=== PATIENT | male | born 1945 | race Caucasian/White ===

== ENCOUNTER 2021-10-26 20:45 | Inpatient (IN) | payer OTHER ==
[2021-10-26 21:28] VITALS: BMI 14.8
[2021-10-26 23:07] LABS: BASO % 0.4 % (0-2.0); HEMATOCRIT 48.5 % (35.4-49); HEMOGLOBIN 16.1 GM/dL (11.7-16.9); LYMPH % 12.8 % (8-40); MCH 28.7 pg (25.7-33.7); MCHC 33.2 g/dl (32.0-35.9); MEAN CELL VOLUME 86.6 fl (80-96); MEAN PLT VOLUME 7.7 fl (7.5-11.1); MONO % 10.6 % (3.8-10.2); NEUT % 76.2 % (42.8-82.8); PLATELET COUNT 338 10^3/uL (134-434); RDW 15.6 % (11.9-15.9); WHITE BLOOD COUNT 6.9 K/mm3 (4.0-10.0)
[2021-10-26 23:15] LABS: INR 1.11 (0.83-1.09); PROTHROMBIN TIME (PATIENT) 12.5 SEC (9.7-13.0)
[2021-10-26 23:17] LABS: ACTIVATED PTT 32.4 SECONDS (25.2-36.5)
[2021-10-26 23:26] LABS: BLOOD UREA NITROGEN 49.4 mg/dL (7-18); CALCIUM 8.4 mg/dL (8.5-10.1)
[2021-10-26 23:27] LABS: MAGNESIUM 2.3 mg/dL (1.8-2.4)
[2021-10-26 23:30] LABS: CREATININE 1.9 mg/dL (0.55-1.3); PHOSPHOROUS 4.6 mg/dL (2.5-4.9)
[2021-10-26 23:31] LABS: BILIRUBIN,TOTAL 0.3 mg/dL (0.2-1); TOT PROT 6.9 g/dl (6.4-8.2)
[2021-10-26] MEDS ORDERED: THIAMINE HCL 200 MG/2 ML VIAL IVPB ONE (23:44)
[2021-10-26] MEDS ORDERED: DEXTROSE 50%-WATER - 25 GM/50 ML VIAL IVPUSH ONE (23:44)
[2021-10-26] MEDS ORDERED: LACTATED RINGERS SOLUTION 1000 ML INFUS.BAG IV ONE (23:48)
[2021-10-27] MEDS ORDERED: THIAMINE HCL 200 MG/2 ML VIAL ONE (00:27)
[2021-10-27] MEDS ORDERED: DEXTROSE 50%-WATER 25 GM/50 ML DISP.SYRIN ONE (00:27)
[2021-10-27] MEDS: DEXTROSE 5%-NORMAL SALINE 1,000 ML IV SCH (04:28)
[2021-10-27 04:46] LABS: URINE APPEARANCE CLEAR; URINE BILIRUBIN NEGATIVE (NEGATIVE); URINE COLOR YELLOW; URINE GLUCOSE (UA) TRACE (NEGATIVE); URINE KETONE NEGATIVE (NEGATIVE); URINE LEUK ESTERASE NEGATIVE (NEGATIVE); URINE NITRITE NEGATIVE (NEGATIVE); URINE PROTEIN TRACE (NEGATIVE); URINE UROBILINOGEN 0.2 mg/dL (0.2-1.0)
[2021-10-27 05:13] LABS: OPIATES, URI NEGATIVE (NEGATIVE); URINE BARBITURATES NEGATIVE (NEGATIVE)
[2021-10-27 05:14] LABS: COCAINE, UR NEGATIVE (NEGATIVE); PHENCYCLIDINE,URINE NEGATIVE (NEGATIVE)
[2021-10-27 05:17] LABS: METHADONE, UR POSITIVE (NEGATIVE); URINE AMPHETAMINES NEGATIVE (NEGATIVE); URINE BENZODIAZEPINES NEGATIVE (NEGATIVE)
[2021-10-27] MEDS ORDERED: PERMETHRIN (NIX CREAM SCALP RINSE) 59 ML 1% BOTTLE TP ONE ×2 (06:45→10:00)
[2021-10-27] MEDS ORDERED: HEPARIN NA (PORCINE) 5,000 UNITS/ML 1ML VIAL ONE ×2 (06:58→15:20)
[2021-10-27] MEDS: HEPARIN NA (PORCINE) 5,000 UNITS/ML 1ML VIAL SQ SCH ×3 (07:03→21:58)
[2021-10-27 07:07] LABS: BASO % 0.3 % (0-2.0); EOS % 0.1 % (0-4.5); HEMATOCRIT 40.8 % (35.4-49); HEMOGLOBIN 13.6 GM/dL (11.7-16.9); LYMPH % 21.6 % (8-40); MCH 28.9 pg (25.7-33.7); MCHC 33.4 g/dl (32.0-35.9); MEAN CELL VOLUME 86.5 fl (80-96); MEAN PLT VOLUME 7.6 fl (7.5-11.1); MONO % 11.8 % (3.8-10.2); NEUT % 66.2 % (42.8-82.8); PLATELET COUNT 274 10^3/uL (134-434); RBC 4.72 M/mm3 (4.00-5.60); RDW 15.3 % (11.9-15.9); WHITE BLOOD COUNT 4.4 K/mm3 (4.0-10.0)
[2021-10-27 07:26] LABS: CALCIUM 7.7 mg/dL (8.5-10.1)
[2021-10-27 07:27] LABS: BLOOD UREA NITROGEN 41.8 mg/dL (7-18); MAGNESIUM 2.1 mg/dL (1.8-2.4)
[2021-10-27 07:30] LABS: CREATININE 1.3 mg/dL (0.55-1.3); PHOSPHOROUS 3.2 mg/dL (2.5-4.9)
[2021-10-27 07:31] LABS: BILIRUBIN,TOTAL 0.3 mg/dL (0.2-1); TOT PROT 5.5 g/dl (6.4-8.2)
[2021-10-27 07:39] LABS: ALBUMIN 2.4 g/dl (3.4-5.0)
[2021-10-27] MEDS ORDERED: DEXAMETHASONE SOD PHOSPHATE 4 MG/1 ML VIAL ONE (09:43)
[2021-10-27] MEDS ORDERED: DEXAMETHASONE SOD PHOSPHATE 10 MG/1 ML VIAL IVPUSH SCH (10:00)
[2021-10-27] MEDS ORDERED: PERMETHRIN 5% TOPICAL CREAM 60 GM TUBE TP ONE (15:30)
[2021-10-27] MEDS ORDERED: methaDONE 40 MG, methaDONE 20 MG PO ONE (18:15)
[2021-10-27] MEDS ORDERED: methaDONE HCL 40 MG DISPERSABLE TABLET ONE (18:48)
[2021-10-27] MEDS ORDERED: methaDONE HCL 10 MG TABLET ONE (18:48)
[2021-10-28] MEDS: DEXTROSE 5%-NORMAL SALINE 1,000 ML IV SCH (03:17)
[2021-10-28] MEDS: HEPARIN NA (PORCINE) 5,000 UNITS/ML 1ML VIAL SQ SCH ×3 (06:02→21:53)
[2021-10-28 08:55] LABS: HEMATOCRIT 37.2 % (35.4-49); HEMOGLOBIN 12.1 GM/dL (11.7-16.9); MCH 28.2 pg (25.7-33.7); MCHC 32.4 g/dl (32.0-35.9); MEAN CELL VOLUME 87.1 fl (80-96); PLATELET COUNT 250 10^3/uL (134-434); RBC 4.28 M/mm3 (4.00-5.60); RDW 15.4 % (11.9-15.9)
[2021-10-28 08:56] LABS: WHITE BLOOD COUNT 5.1 K/mm3 (4.0-10.0)
[2021-10-28 09:10] LABS: CALCIUM 7.8 mg/dL (8.5-10.1)
[2021-10-28 09:11] LABS: ALBUMIN 2.2 g/dl (3.4-5.0); BLOOD UREA NITROGEN 23.1 mg/dL (7-18); MAGNESIUM 2.1 mg/dL (1.8-2.4)
[2021-10-28 09:14] LABS: CREATININE 0.8 mg/dL (0.55-1.3); PHOSPHOROUS 1.8 mg/dL (2.5-4.9)
[2021-10-28 09:15] LABS: BILIRUBIN,TOTAL 0.2 mg/dL (0.2-1); TOT PROT 4.8 g/dl (6.4-8.2)
[2021-10-28] MEDS ORDERED: PT OWN MED DRAWER 7, Y5N ONE (10:47)
[2021-10-28] MEDS: MULTIVITAMINS (DAILY MVI) TABLET (FP) PO SCH (11:17)
[2021-10-28] MEDS: DEXAMETHASONE SOD PHOSPHATE 10 MG/1 ML VIAL IVPUSH SCH (11:17)
[2021-10-28] MEDS: THIAMINE HCL 100 MG TABLET (FP) PO SCH (11:17)
[2021-10-28] MEDS: FOLIC ACID 1 MG TABLET (FP) PO SCH (11:18)
[2021-10-28] MEDS: BUDESONIDE/FORMETEROL FUMARATE 160/4.5 mcg INHALER IH SCH ×2 (11:19→21:53)
[2021-10-28] MEDS ORDERED: NAPH,MB-DB/K PH,MBDB POWDER PACKET PO ONE (11:45)
[2021-10-28] MEDS ORDERED: SODIUM CHLORIDE 100 ML IVPB ONE ×2 (13:29→21:34)
[2021-10-28] MEDS ORDERED: AMPICILLIN NA/SULBACTAM NA 3 GM VIAL ONE ×2 (13:29→21:34)
[2021-10-28] MEDS: AMPICILLIN NA/SULBACTAM NA 3 GM in SODIUM CHLORIDE 100 ML IVPB SCH ×2 (14:13→21:53)
[2021-10-28] MEDS ORDERED: REMDESIVIR 200 MG in SODIUM CHLORIDE 250 ML IVPB ONE (16:00)
[2021-10-29] MEDS ORDERED: AMPICILLIN NA/SULBACTAM NA 3 GM VIAL ONE ×3 (03:08→21:47)
[2021-10-29] MEDS ORDERED: SODIUM CHLORIDE 100 ML IVPB ONE ×3 (03:09→21:47)
[2021-10-29] MEDS: AMPICILLIN NA/SULBACTAM NA 3 GM in SODIUM CHLORIDE 100 ML IVPB SCH ×4 (03:14→21:55)
[2021-10-29] MEDS: HEPARIN NA (PORCINE) 5,000 UNITS/ML 1ML VIAL SQ SCH ×3 (06:02→21:55)
[2021-10-29 08:15] LABS: HEMATOCRIT 40.1 % (35.4-49); MCH 28.2 pg (25.7-33.7); MCHC 32.3 g/dl (32.0-35.9); MEAN CELL VOLUME 87.2 fl (80-96); MEAN PLT VOLUME 8.1 fl (7.5-11.1); PLATELET COUNT 282 10^3/uL (134-434); RDW 14.8 % (11.9-15.9)
[2021-10-29 08:53] LABS: ALBUMIN 2.4 g/dl (3.4-5.0); BLOOD UREA NITROGEN 18.2 mg/dL (7-18); CALCIUM 7.9 mg/dL (8.5-10.1); MAGNESIUM 1.8 mg/dL (1.8-2.4)
[2021-10-29] MEDS ORDERED: methaDONE HCL 10 MG TABLET PO SCH (08:55)
[2021-10-29 08:56] LABS: CREATININE 0.7 mg/dL (0.55-1.3); PHOSPHOROUS 1.7 mg/dL (2.5-4.9)
[2021-10-29 08:57] LABS: BILIRUBIN,TOTAL 0.4 mg/dL (0.2-1); TOT PROT 5.1 g/dl (6.4-8.2)
[2021-10-29] MEDS ORDERED: methaDONE HCL 40 MG DISPERSABLE TABLET ONE (10:11)
[2021-10-29] MEDS ORDERED: methaDONE HCL 10 MG TABLET ONE (10:11)
[2021-10-29] MEDS: DEXAMETHASONE SOD PHOSPHATE 10 MG/1 ML VIAL IVPUSH SCH (10:28)
[2021-10-29] MEDS: THIAMINE HCL 100 MG TABLET (FP) PO SCH (10:29)
[2021-10-29] MEDS: BUDESONIDE/FORMETEROL FUMARATE 160/4.5 mcg INHALER IH SCH ×2 (10:29→21:55)
[2021-10-29] MEDS: MULTIVITAMINS (DAILY MVI) TABLET (FP) PO SCH (10:29)
[2021-10-29] MEDS: FOLIC ACID 1 MG TABLET (FP) PO SCH (10:29)
[2021-10-29] MEDS: methaDONE 40 MG, methaDONE 30 MG PO SCH (10:29)
[2021-10-29] MEDS ORDERED: POTASSIUM PHOSPHATE 30 MM in DEXTROSE 5%-WATER - 500 ML IVPB ONE (11:00)
[2021-10-29] MEDS: REMDESIVIR 100 MG in SODIUM CHLORIDE 250 ML IVPB SCH (17:28)
[2021-10-29] MEDS: methaDONE HCL 10 MG TABLET PO SCH ×2 (22:21→22:22)
[2021-10-30] MEDS ORDERED: AMPICILLIN NA/SULBACTAM NA 3 GM VIAL ONE ×3 (02:02→20:27)
[2021-10-30] MEDS ORDERED: SODIUM CHLORIDE 100 ML IVPB ONE ×3 (02:03→20:28)
[2021-10-30] MEDS: AMPICILLIN NA/SULBACTAM NA 3 GM in SODIUM CHLORIDE 100 ML IVPB SCH ×4 (02:41→20:41)
[2021-10-30] MEDS ORDERED: methaDONE HCL 40 MG DISPERSABLE TABLET ONE (05:27)
[2021-10-30] MEDS ORDERED: methaDONE HCL 10 MG TABLET ONE (05:28)
[2021-10-30] MEDS: HEPARIN NA (PORCINE) 5,000 UNITS/ML 1ML VIAL SQ SCH ×3 (05:55→21:01)
[2021-10-30] MEDS: methaDONE 40 MG, methaDONE 30 MG PO SCH (05:55)
[2021-10-30 07:53] LABS: ALBUMIN 2.2 g/dl (3.4-5.0); BLOOD UREA NITROGEN 21.1 mg/dL (7-18); CALCIUM 8.1 mg/dL (8.5-10.1)
[2021-10-30 07:55] LABS: HEMOGLOBIN 12.6 GM/dL (11.7-16.9); MCH 28.1 pg (25.7-33.7); MCHC 32.3 g/dl (32.0-35.9); MEAN CELL VOLUME 86.9 fl (80-96); MEAN PLT VOLUME 7.6 fl (7.5-11.1); PLATELET COUNT 260 10^3/uL (134-434); RBC 4.49 M/mm3 (4.00-5.60); RDW 14.9 % (11.9-15.9); WHITE BLOOD COUNT 4.4 K/mm3 (4.0-10.0)
[2021-10-30 07:56] LABS: CREATININE 0.7 mg/dL (0.55-1.3)
[2021-10-30 07:58] LABS: BILIRUBIN,TOTAL 0.5 mg/dL (0.2-1); TOT PROT 4.9 g/dl (6.4-8.2)
[2021-10-30] MEDS: DEXAMETHASONE SOD PHOSPHATE 10 MG/1 ML VIAL IVPUSH SCH (09:55)
[2021-10-30] MEDS: THIAMINE HCL 100 MG TABLET (FP) PO SCH (09:55)
[2021-10-30] MEDS: MULTIVITAMINS (DAILY MVI) TABLET (FP) PO SCH (09:56)
[2021-10-30] MEDS: FOLIC ACID 1 MG TABLET (FP) PO SCH (09:56)
[2021-10-30] MEDS: BUDESONIDE/FORMETEROL FUMARATE 160/4.5 mcg INHALER IH SCH ×2 (09:56→21:01)
[2021-10-30 10:21] LABS: ERYTHROCYTE SEDIMENTATION RATE 6 mm/hr (0-20)
[2021-10-30] MEDS: REMDESIVIR 100 MG in SODIUM CHLORIDE 250 ML IVPB SCH (16:03)
[2021-10-31] MEDS ORDERED: SODIUM CHLORIDE 100 ML IVPB ONE ×4 (02:36→20:17)
[2021-10-31] MEDS ORDERED: AMPICILLIN NA/SULBACTAM NA 3 GM VIAL ONE ×4 (02:36→20:17)
[2021-10-31] MEDS: AMPICILLIN NA/SULBACTAM NA 3 GM in SODIUM CHLORIDE 100 ML IVPB SCH ×4 (02:38→20:25)
[2021-10-31] MEDS ORDERED: methaDONE HCL 40 MG DISPERSABLE TABLET ONE (05:39)
[2021-10-31] MEDS ORDERED: methaDONE HCL 10 MG TABLET ONE (05:39)
[2021-10-31] MEDS: methaDONE 40 MG, methaDONE 30 MG PO SCH (05:55)
[2021-10-31] MEDS: HEPARIN NA (PORCINE) 5,000 UNITS/ML 1ML VIAL SQ SCH ×3 (05:55→21:01)
[2021-10-31 09:09] LABS: CALCIUM 8.3 mg/dL (8.5-10.1)
[2021-10-31 09:10] LABS: ALBUMIN 2.3 g/dl (3.4-5.0); BLOOD UREA NITROGEN 19.7 mg/dL (7-18)
[2021-10-31 09:13] LABS: CREATININE 0.8 mg/dL (0.55-1.3)
[2021-10-31 09:15] LABS: BILIRUBIN,TOTAL 0.2 mg/dL (0.2-1)
[2021-10-31 09:22] LABS: HEMATOCRIT 41.1 % (35.4-49); HEMOGLOBIN 13.1 GM/dL (11.7-16.9); MCHC 31.8 g/dl (32.0-35.9); MEAN CELL VOLUME 88.2 fl (80-96); MEAN PLT VOLUME 7.9 fl (7.5-11.1); PLATELET COUNT 285 10^3/uL (134-434); RBC 4.66 M/mm3 (4.00-5.60); RDW 15.1 % (11.9-15.9); WHITE BLOOD COUNT 5.4 K/mm3 (4.0-10.0)
[2021-10-31] MEDS ORDERED: PT OWN MED DRAWER 7, Y5N ONE (09:35)
[2021-10-31] MEDS: THIAMINE HCL 100 MG TABLET (FP) PO SCH (09:37)
[2021-10-31] MEDS: FOLIC ACID 1 MG TABLET (FP) PO SCH (09:37)
[2021-10-31] MEDS: BUDESONIDE/FORMETEROL FUMARATE 160/4.5 mcg INHALER IH SCH ×2 (09:37→21:01)
[2021-10-31] MEDS: DEXAMETHASONE SOD PHOSPHATE 10 MG/1 ML VIAL IVPUSH SCH (09:38)
[2021-10-31 10:54] LABS: ERYTHROCYTE SEDIMENTATION RATE 8 mm/hr (0-20)
[2021-10-31] MEDS: MULTIVITAMINS (DAILY MVI) TABLET (FP) PO SCH (10:58)
[2021-10-31 11:54] LABS: BASO % 0.1 % (0-2.0); EOS % 0.5 % (0-4.5); MONO % 10.7 % (3.8-10.2); NEUT % 67.7 % (42.8-82.8)
[2021-10-31] MEDS: REMDESIVIR 100 MG in SODIUM CHLORIDE 250 ML IVPB SCH (15:59)
[2021-11-01] MEDS ORDERED: AMPICILLIN NA/SULBACTAM NA 3 GM VIAL ONE ×4 (02:52→21:22)
[2021-11-01] MEDS: AMPICILLIN NA/SULBACTAM NA 3 GM in SODIUM CHLORIDE 100 ML IVPB SCH ×4 (02:54→21:31)
[2021-11-01] MEDS: methaDONE 40 MG, methaDONE 30 MG PO SCH (05:04)
[2021-11-01] MEDS ORDERED: methaDONE HCL 10 MG TABLET ONE (05:04)
[2021-11-01] MEDS ORDERED: methaDONE HCL 40 MG DISPERSABLE TABLET ONE (05:04)
[2021-11-01] MEDS: HEPARIN NA (PORCINE) 5,000 UNITS/ML 1ML VIAL SQ SCH ×3 (05:07→21:31)
[2021-11-01 07:58] LABS: HEMATOCRIT 40.2 % (35.4-49); HEMOGLOBIN 12.7 GM/dL (11.7-16.9); MCHC 31.7 g/dl (32.0-35.9); MEAN CELL VOLUME 88.3 fl (80-96); MEAN PLT VOLUME 7.8 fl (7.5-11.1); PLATELET COUNT 299 10^3/uL (134-434); RBC 4.55 M/mm3 (4.00-5.60); RDW 14.7 % (11.9-15.9); WHITE BLOOD COUNT 5.7 K/mm3 (4.0-10.0)
[2021-11-01 08:36] LABS: ALBUMIN 2.3 g/dl (3.4-5.0); BILIRUBIN,TOTAL 0.3 mg/dL (0.2-1); BLOOD UREA NITROGEN 22.4 mg/dL (7-18); CALCIUM 7.9 mg/dL (8.5-10.1); CREATININE 0.7 mg/dL (0.55-1.3)
[2021-11-01] MEDS ORDERED: SODIUM CHLORIDE 100 ML IVPB ONE ×3 (09:36→21:22)
[2021-11-01] MEDS: MULTIVITAMINS (DAILY MVI) TABLET (FP) PO SCH (09:41)
[2021-11-01] MEDS: BUDESONIDE/FORMETEROL FUMARATE 160/4.5 mcg INHALER IH SCH ×2 (09:41→21:32)
[2021-11-01] MEDS: THIAMINE HCL 100 MG TABLET (FP) PO SCH (09:41)
[2021-11-01] MEDS: FOLIC ACID 1 MG TABLET (FP) PO SCH (09:41)
[2021-11-01] MEDS: DEXAMETHASONE SOD PHOSPHATE 10 MG/1 ML VIAL IVPUSH SCH (09:41)
[2021-11-01 10:18] LABS: ERYTHROCYTE SEDIMENTATION RATE 7 mm/hr (0-20)
[2021-11-01] MEDS: REMDESIVIR 100 MG in SODIUM CHLORIDE 250 ML IVPB SCH (16:00)
[2021-11-02] MEDS ORDERED: AMPICILLIN NA/SULBACTAM NA 3 GM VIAL ONE ×4 (02:02→20:51)
[2021-11-02] MEDS ORDERED: SODIUM CHLORIDE 100 ML IVPB ONE ×4 (02:02→20:51)
[2021-11-02] MEDS: AMPICILLIN NA/SULBACTAM NA 3 GM in SODIUM CHLORIDE 100 ML IVPB SCH ×4 (02:03→20:55)
[2021-11-02] MEDS ORDERED: methaDONE HCL 40 MG DISPERSABLE TABLET ONE (05:43)
[2021-11-02] MEDS ORDERED: methaDONE HCL 10 MG TABLET ONE (05:44)
[2021-11-02] MEDS: methaDONE 40 MG, methaDONE 30 MG PO SCH (06:07)
[2021-11-02] MEDS: HEPARIN NA (PORCINE) 5,000 UNITS/ML 1ML VIAL SQ SCH ×3 (06:07→21:50)
[2021-11-02 09:37] LABS: CALCIUM 8.4 mg/dL (8.5-10.1)
[2021-11-02 09:38] LABS: ALBUMIN 2.4 g/dl (3.4-5.0)
[2021-11-02 09:41] LABS: CREATININE 0.7 mg/dL (0.55-1.3)
[2021-11-02 09:42] LABS: BILIRUBIN,TOTAL 0.3 mg/dL (0.2-1); TOT PROT 4.9 g/dl (6.4-8.2)
[2021-11-02 10:23] LABS: HEMATOCRIT 38.3 % (35.4-49); HEMOGLOBIN 12.7 GM/dL (11.7-16.9); MCH 28.7 pg (25.7-33.7); MCHC 33.1 g/dl (32.0-35.9); MEAN CELL VOLUME 86.6 fl (80-96); MEAN PLT VOLUME 7.6 fl (7.5-11.1); PLATELET COUNT 292 10^3/uL (134-434); RBC 4.42 M/mm3 (4.00-5.60); RDW 15.1 % (11.9-15.9); WHITE BLOOD COUNT 5.9 K/mm3 (4.0-10.0)
[2021-11-02 10:54] LABS: ERYTHROCYTE SEDIMENTATION RATE 5 mm/hr (0-20)
[2021-11-02] MEDS: THIAMINE HCL 100 MG TABLET (FP) PO SCH (10:58)
[2021-11-02] MEDS: DEXAMETHASONE SOD PHOSPHATE 10 MG/1 ML VIAL IVPUSH SCH (10:58)
[2021-11-02] MEDS: MULTIVITAMINS (DAILY MVI) TABLET (FP) PO SCH (10:58)
[2021-11-02] MEDS: BUDESONIDE/FORMETEROL FUMARATE 160/4.5 mcg INHALER IH SCH ×2 (11:01→21:50)
[2021-11-02] MEDS: FOLIC ACID 1 MG TABLET (FP) PO SCH (11:01)
[2021-11-02 15:13] LABS: HIV INTERPRETATION NEGATIVE (NEGATIVE)
[2021-11-03] MEDS ORDERED: SODIUM CHLORIDE 100 ML IVPB ONE ×4 (02:28→21:11)
[2021-11-03] MEDS ORDERED: AMPICILLIN NA/SULBACTAM NA 3 GM VIAL ONE ×4 (02:28→21:10)
[2021-11-03] MEDS: AMPICILLIN NA/SULBACTAM NA 3 GM in SODIUM CHLORIDE 100 ML IVPB SCH ×4 (02:31→22:27)
[2021-11-03] MEDS ORDERED: methaDONE HCL 40 MG DISPERSABLE TABLET ONE (04:56)
[2021-11-03] MEDS ORDERED: methaDONE HCL 10 MG TABLET ONE (04:56)
[2021-11-03] MEDS: HEPARIN NA (PORCINE) 5,000 UNITS/ML 1ML VIAL SQ SCH ×3 (05:03→22:27)
[2021-11-03] MEDS: methaDONE 40 MG, methaDONE 30 MG PO SCH (05:03)
[2021-11-03 08:08] LABS: HEMATOCRIT 41.1 % (35.4-49); HEMOGLOBIN 13.3 GM/dL (11.7-16.9); MCH 28.3 pg (25.7-33.7); MCHC 32.3 g/dl (32.0-35.9); MEAN CELL VOLUME 87.6 fl (80-96); MEAN PLT VOLUME 8.6 fl (7.5-11.1); PLATELET COUNT 287 10^3/uL (134-434); RBC 4.69 M/mm3 (4.00-5.60); RDW 15.4 % (11.9-15.9); WHITE BLOOD COUNT 6.6 K/mm3 (4.0-10.0)
[2021-11-03 08:40] LABS: CALCIUM 8.4 mg/dL (8.5-10.1)
[2021-11-03 08:41] LABS: ALBUMIN 2.3 g/dl (3.4-5.0); BLOOD UREA NITROGEN 25.8 mg/dL (7-18)
[2021-11-03 08:42] LABS: CREATININE 0.6 mg/dL (0.55-1.3)
[2021-11-03 08:44] LABS: BILIRUBIN,TOTAL 0.2 mg/dL (0.2-1); TOT PROT 4.9 g/dl (6.4-8.2)
[2021-11-03 09:36] LABS: ERYTHROCYTE SEDIMENTATION RATE 8 mm/hr (0-20)
[2021-11-03] MEDS: DEXAMETHASONE SOD PHOSPHATE 10 MG/1 ML VIAL IVPUSH SCH (09:55)
[2021-11-03] MEDS: FOLIC ACID 1 MG TABLET (FP) PO SCH (09:56)
[2021-11-03] MEDS: THIAMINE HCL 100 MG TABLET (FP) PO SCH (09:56)
[2021-11-03] MEDS: MULTIVITAMINS (DAILY MVI) TABLET (FP) PO SCH (09:56)
[2021-11-03] MEDS: BUDESONIDE/FORMETEROL FUMARATE 160/4.5 mcg INHALER IH SCH ×2 (09:57→22:27)
[2021-11-04] MEDS ORDERED: AMPICILLIN NA/SULBACTAM NA 3 GM VIAL ONE ×2 (01:23→10:10)
[2021-11-04] MEDS ORDERED: SODIUM CHLORIDE 100 ML IVPB ONE ×2 (01:24→10:10)
[2021-11-04] MEDS: AMPICILLIN NA/SULBACTAM NA 3 GM in SODIUM CHLORIDE 100 ML IVPB SCH ×2 (03:13→10:15)
[2021-11-04] MEDS ORDERED: methaDONE HCL 40 MG DISPERSABLE TABLET ONE (06:07)
[2021-11-04] MEDS ORDERED: methaDONE HCL 10 MG TABLET ONE (06:07)
[2021-11-04] MEDS: methaDONE 40 MG, methaDONE 30 MG PO SCH (06:15)
[2021-11-04] MEDS: HEPARIN NA (PORCINE) 5,000 UNITS/ML 1ML VIAL SQ SCH ×2 (06:16→15:07)
[2021-11-04 09:29] LABS: CALCIUM 8.4 mg/dL (8.5-10.1)
[2021-11-04 09:30] LABS: ALBUMIN 2.4 g/dl (3.4-5.0); BLOOD UREA NITROGEN 32.1 mg/dL (7-18)
[2021-11-04 09:32] LABS: BILIRUBIN,TOTAL 0.2 mg/dL (0.2-1); TOT PROT 5.1 g/dl (6.4-8.2)
[2021-11-04 09:33] LABS: CREATININE 0.7 mg/dL (0.55-1.3)
[2021-11-04] MEDS: FOLIC ACID 1 MG TABLET (FP) PO SCH (10:15)
[2021-11-04] MEDS: BUDESONIDE/FORMETEROL FUMARATE 160/4.5 mcg INHALER IH SCH ×2 (10:15→21:15)
[2021-11-04] MEDS: THIAMINE HCL 100 MG TABLET (FP) PO SCH (10:15)
[2021-11-04] MEDS: MULTIVITAMINS (DAILY MVI) TABLET (FP) PO SCH (10:15)
[2021-11-04] MEDS: DEXAMETHASONE SOD PHOSPHATE 10 MG/1 ML VIAL IVPUSH SCH (11:57)
[2021-11-05] MEDS: methaDONE HCL 40 MG DISPERSABLE TABLET PO SCH (09:58)
[2021-11-05] MEDS: MULTIVITAMINS (DAILY MVI) TABLET (FP) PO SCH (10:04)
[2021-11-05] MEDS: THIAMINE HCL 100 MG TABLET (FP) PO SCH (10:04)
[2021-11-05] MEDS: FOLIC ACID 1 MG TABLET (FP) PO SCH (10:05)
[2021-11-05] MEDS: DEXAMETHASONE SOD PHOSPHATE 10 MG/1 ML VIAL IVPUSH SCH (10:05)
[2021-11-05] MEDS: ENOXAPARIN NA (PORCINE) 40 MG/0.4 ML DISP.SYRIN SQ SCH (10:06)
[2021-11-05] MEDS: BUDESONIDE/FORMETEROL FUMARATE 160/4.5 mcg INHALER IH SCH ×2 (10:06→21:12)
[2021-11-06] MEDS: methaDONE HCL 40 MG DISPERSABLE TABLET PO SCH (05:37)
[2021-11-06] MEDS: DEXAMETHASONE SOD PHOSPHATE 10 MG/1 ML VIAL IVPUSH SCH (10:45)
[2021-11-06] MEDS: FOLIC ACID 1 MG TABLET (FP) PO SCH (10:45)
[2021-11-06] MEDS: ENOXAPARIN NA (PORCINE) 40 MG/0.4 ML DISP.SYRIN SQ SCH (10:45)
[2021-11-06] MEDS: THIAMINE HCL 100 MG TABLET (FP) PO SCH (10:45)
[2021-11-06] MEDS: BUDESONIDE/FORMETEROL FUMARATE 160/4.5 mcg INHALER IH SCH ×2 (10:45→21:17)
[2021-11-06] MEDS: MULTIVITAMINS (DAILY MVI) TABLET (FP) PO SCH (10:45)
[2021-11-07] MEDS: methaDONE HCL 40 MG DISPERSABLE TABLET PO SCH (05:33)
[2021-11-07] MEDS: MULTIVITAMINS (DAILY MVI) TABLET (FP) PO SCH (10:04)
[2021-11-07] MEDS: DEXAMETHASONE SOD PHOSPHATE 10 MG/1 ML VIAL IVPUSH SCH (10:04)
[2021-11-07] MEDS: THIAMINE HCL 100 MG TABLET (FP) PO SCH (10:04)
[2021-11-07] MEDS: ENOXAPARIN NA (PORCINE) 40 MG/0.4 ML DISP.SYRIN SQ SCH (10:04)
[2021-11-07] MEDS: FOLIC ACID 1 MG TABLET (FP) PO SCH (10:05)
[2021-11-07] MEDS: BUDESONIDE/FORMETEROL FUMARATE 160/4.5 mcg INHALER IH SCH ×2 (10:06→21:25)
[2021-11-07 12:01] LABS: HEMATOCRIT 40.2 % (35.4-49); HEMOGLOBIN 12.7 GM/dL (11.7-16.9); MCH 27.9 pg (25.7-33.7); MCHC 31.6 g/dl (32.0-35.9); MEAN CELL VOLUME 88.4 fl (80-96); MEAN PLT VOLUME 8.5 fl (7.5-11.1); PLATELET COUNT 278 10^3/uL (134-434); RBC 4.55 M/mm3 (4.00-5.60); RDW 15.8 % (11.9-15.9); WHITE BLOOD COUNT 7.4 K/mm3 (4.0-10.0)
[2021-11-07 12:27] LABS: ALBUMIN 2.5 g/dl (3.4-5.0); BLOOD UREA NITROGEN 30.3 mg/dL (7-18); CALCIUM 8.5 mg/dL (8.5-10.1); MAGNESIUM 2.1 mg/dL (1.8-2.4)
[2021-11-07 12:30] LABS: CREATININE 0.8 mg/dL (0.55-1.3); PHOSPHOROUS 3.7 mg/dL (2.5-4.9)
[2021-11-07 12:32] LABS: BILIRUBIN,TOTAL 0.3 mg/dL (0.2-1); TOT PROT 5.2 g/dl (6.4-8.2)
[2021-11-08] MEDS: methaDONE HCL 40 MG DISPERSABLE TABLET PO SCH (06:22)
[2021-11-08] MEDS: THIAMINE HCL 100 MG TABLET (FP) PO SCH (09:13)
[2021-11-08] MEDS: ENOXAPARIN NA (PORCINE) 40 MG/0.4 ML DISP.SYRIN SQ SCH (09:14)
[2021-11-08] MEDS: FOLIC ACID 1 MG TABLET (FP) PO SCH (09:14)
[2021-11-08] MEDS: MULTIVITAMINS (DAILY MVI) TABLET (FP) PO SCH (09:14)
[2021-11-08] MEDS: BUDESONIDE/FORMETEROL FUMARATE 160/4.5 mcg INHALER IH SCH ×2 (09:14→21:18)
[2021-11-08 10:08] LABS: HEMOGLOBIN 12.2 GM/dL (11.7-16.9); MCH 28.1 pg (25.7-33.7); MCHC 31.4 g/dl (32.0-35.9); MEAN CELL VOLUME 89.5 fl (80-96); MEAN PLT VOLUME 8.8 fl (7.5-11.1); PLATELET COUNT 244 10^3/uL (134-434); RBC 4.35 M/mm3 (4.00-5.60); RDW 16.2 % (11.9-15.9); WHITE BLOOD COUNT 11.2 K/mm3 (4.0-10.0)
[2021-11-08 10:25] LABS: INR 0.95 (0.83-1.09); PROTHROMBIN TIME (PATIENT) 10.9 SEC (9.7-13.0)
[2021-11-08 10:27] LABS: ACTIVATED PTT 24.5 SECONDS (25.2-36.5)
[2021-11-08 10:55] LABS: ALBUMIN 2.4 g/dl (3.4-5.0); CALCIUM 8.6 mg/dL (8.5-10.1)
[2021-11-08 10:56] LABS: BLOOD UREA NITROGEN 29.2 mg/dL (7-18); MAGNESIUM 2.1 mg/dL (1.8-2.4)
[2021-11-08 10:58] LABS: PHOSPHOROUS 3.2 mg/dL (2.5-4.9)
[2021-11-08 10:59] LABS: CREATININE 0.9 mg/dL (0.55-1.3)
[2021-11-08 11:00] LABS: BILIRUBIN,TOTAL 0.3 mg/dL (0.2-1); TOT PROT 5.1 g/dl (6.4-8.2)
[2021-11-09] MEDS: methaDONE HCL 40 MG DISPERSABLE TABLET PO SCH (06:16)
[2021-11-09] MEDS: ENOXAPARIN NA (PORCINE) 40 MG/0.4 ML DISP.SYRIN SQ SCH (10:03)
[2021-11-09] MEDS: MULTIVITAMINS (DAILY MVI) TABLET (FP) PO SCH (10:03)
[2021-11-09] MEDS: THIAMINE HCL 100 MG TABLET (FP) PO SCH (10:03)
[2021-11-09] MEDS: BUDESONIDE/FORMETEROL FUMARATE 160/4.5 mcg INHALER IH SCH ×2 (10:04→22:03)
[2021-11-09] MEDS: FOLIC ACID 1 MG TABLET (FP) PO SCH (10:04)
[2021-11-10] MEDS: methaDONE HCL 40 MG DISPERSABLE TABLET PO SCH (05:55)
[2021-11-10] MEDS: MULTIVITAMINS (DAILY MVI) TABLET (FP) PO SCH (11:10)
[2021-11-10] MEDS: THIAMINE HCL 100 MG TABLET (FP) PO SCH (11:10)
[2021-11-10] MEDS: ENOXAPARIN NA (PORCINE) 40 MG/0.4 ML DISP.SYRIN SQ SCH (11:10)
[2021-11-10] MEDS: BUDESONIDE/FORMETEROL FUMARATE 160/4.5 mcg INHALER IH SCH ×2 (11:11→21:43)
[2021-11-10] MEDS: FOLIC ACID 1 MG TABLET (FP) PO SCH (11:11)
[2021-11-11] MEDS: methaDONE HCL 40 MG DISPERSABLE TABLET PO SCH (05:25)
[2021-11-11] MEDS: BUDESONIDE/FORMETEROL FUMARATE 160/4.5 mcg INHALER IH SCH ×2 (09:40→22:41)
[2021-11-11] MEDS: FOLIC ACID 1 MG TABLET (FP) PO SCH (09:40)
[2021-11-11] MEDS: ENOXAPARIN NA (PORCINE) 40 MG/0.4 ML DISP.SYRIN SQ SCH (09:40)
[2021-11-11] MEDS: MULTIVITAMINS (DAILY MVI) TABLET (FP) PO SCH (09:40)
[2021-11-11] MEDS: THIAMINE HCL 100 MG TABLET (FP) PO SCH (09:40)
[2021-11-12] MEDS: methaDONE HCL 40 MG DISPERSABLE TABLET PO SCH (05:40)
[2021-11-12] MEDS: MULTIVITAMINS (DAILY MVI) TABLET (FP) PO SCH (10:23)
[2021-11-12] MEDS: FOLIC ACID 1 MG TABLET (FP) PO SCH (10:24)
[2021-11-12] MEDS: THIAMINE HCL 100 MG TABLET (FP) PO SCH (10:24)
[2021-11-12] MEDS: BUDESONIDE/FORMETEROL FUMARATE 160/4.5 mcg INHALER IH SCH ×2 (10:30→22:49)
[2021-11-13] MEDS: methaDONE HCL 40 MG DISPERSABLE TABLET PO SCH (06:25)
[2021-11-13] MEDS: FOLIC ACID 1 MG TABLET (FP) PO SCH (09:34)
[2021-11-13] MEDS: THIAMINE HCL 100 MG TABLET (FP) PO SCH (09:34)
[2021-11-13] MEDS: MULTIVITAMINS (DAILY MVI) TABLET (FP) PO SCH (09:35)
[2021-11-13] MEDS: BUDESONIDE/FORMETEROL FUMARATE 160/4.5 mcg INHALER IH SCH ×3 (09:35→22:10)
[2021-11-14] MEDS: methaDONE HCL 40 MG DISPERSABLE TABLET PO SCH (05:55)
[2021-11-14] MEDS: MULTIVITAMINS (DAILY MVI) TABLET (FP) PO SCH (09:09)
[2021-11-14] MEDS: THIAMINE HCL 100 MG TABLET (FP) PO SCH (09:10)
[2021-11-14] MEDS: FOLIC ACID 1 MG TABLET (FP) PO SCH (09:10)
[2021-11-14] MEDS: BUDESONIDE/FORMETEROL FUMARATE 160/4.5 mcg INHALER IH SCH ×2 (09:15→21:53)
[2021-11-15] MEDS: methaDONE HCL 40 MG DISPERSABLE TABLET PO SCH (05:19)
[2021-11-15] MEDS: THIAMINE HCL 100 MG TABLET (FP) PO SCH (10:38)
[2021-11-15] MEDS: BUDESONIDE/FORMETEROL FUMARATE 160/4.5 mcg INHALER IH SCH ×2 (10:38→21:16)
[2021-11-15] MEDS: FOLIC ACID 1 MG TABLET (FP) PO SCH (10:38)
[2021-11-15] MEDS: MULTIVITAMINS (DAILY MVI) TABLET (FP) PO SCH (10:38)
[2021-11-16] MEDS: methaDONE HCL 40 MG DISPERSABLE TABLET PO SCH (05:26)
[2021-11-16] MEDS: MULTIVITAMINS (DAILY MVI) TABLET (FP) PO SCH (10:39)
[2021-11-16] MEDS: BUDESONIDE/FORMETEROL FUMARATE 160/4.5 mcg INHALER IH SCH ×2 (10:39→21:00)
[2021-11-16] MEDS: FOLIC ACID 1 MG TABLET (FP) PO SCH (10:39)
[2021-11-16] MEDS: THIAMINE HCL 100 MG TABLET (FP) PO SCH (10:39)
[2021-11-17] MEDS: methaDONE HCL 40 MG DISPERSABLE TABLET PO SCH (06:23)
[2021-11-17] MEDS: FOLIC ACID 1 MG TABLET (FP) PO SCH (09:02)
[2021-11-17] MEDS: MULTIVITAMINS (DAILY MVI) TABLET (FP) PO SCH (09:02)
[2021-11-17] MEDS: THIAMINE HCL 100 MG TABLET (FP) PO SCH (09:02)
[2021-11-17] MEDS: BUDESONIDE/FORMETEROL FUMARATE 160/4.5 mcg INHALER IH SCH (09:03)
[2021-11-17 09:22] VITALS: BP 100/68; PULSE 67; TEMP 98.1
== END 2021-11-17 10:00 | disposition home or self-care (01) | DRG 177 ==
LOC: JER 20:45 → JERBED 10-27 01:48 → J4S 10-27 18:14 → J5S 11-10 19:05
PROVIDERS: ADMIT Internal Medicine
PROC: XW033E5 Introduction of Remdesivir Anti-infective into Peripheral Vein, Percutaneous Approach, New Technology Group 5 (ICD-10-PCS; principal; 2021-10-28)
DX: U07.1 COVID-19 (principal); J96.01 Acute respiratory failure with hypoxia; J12.82 Pneumonia due to coronavirus disease 2019; N17.9 Acute kidney failure, unspecified; F11.20 Opioid dependence, uncomplicated; L03.115 Cellulitis of right lower limb; R64 Cachexia; E46 Unspecified protein-calorie malnutrition; L03.116 Cellulitis of left lower limb; Z68.1 Body mass index [BMI] 19.9 or less, adult; I73.9 Peripheral vascular disease, unspecified; F17.210 Nicotine dependence, cigarettes, uncomplicated; B85.0 Pediculosis due to Pediculus humanus capitis; R74.01 Elevation of levels of liver transaminase levels
CPT/HCPCS: 36415; 71045-TC-FY; 76775-TC; 80053; 80307; 81003; 82550; 82553; 82728; 83615; 83735; 84100; 84484; 85025; 85027; 85379; 85610; 85651; 85730; 86140; 86705; 86709; 86803; 87086; 87340; 87389; 87517; 87522; 93005; 93010; 93925-TC; 94761; 97116-GP; 97161-GP; 99285-25; C9399; C9803; J1100; J1644; U0003; U0005

== ENCOUNTER 2022-02-08 16:53 | Inpatient (IN) | payer OTHER ==
[2022-02-08] MEDS ORDERED: PIPERACILLIN/TAZOB 4.5 GM 4.5 GM in DEXTROSE 5%-WATER 100 ML IVPB ONE (17:57)
[2022-02-08] MEDS ORDERED: VANCOMYCIN 1,000 MG in DEXTROSE 5%-WATER - 250 ML IVPB ONE (17:57)
[2022-02-08] MEDS ORDERED: VANCOMYCIN 1 GRAM (PRE-DOCKED) 1,000 MG/250 ML BAG IVPB ONE (18:29)
[2022-02-08] MEDS ORDERED: PIPERACILLIN/TAZOB 4.5 GM 4.5 GM/100 ML BAG IVPB ONE (18:29)
[2022-02-08 19:20] LABS: BASO % 0.7 % (0-2.0); EOS % 2.6 % (0-4.5); HEMATOCRIT 39.3 % (35.4-49); HEMOGLOBIN 12.6 GM/dL (11.7-16.9); LYMPH % 13.5 % (8-40); MCH 27.7 pg (25.7-33.7); MCHC 32.1 g/dl (32.0-35.9); MEAN CELL VOLUME 86.5 fl (80-96); MEAN PLT VOLUME 7.8 fl (7.5-11.1); MONO % 7.3 % (3.8-10.2); NEUT % 75.9 % (42.8-82.8); PLATELET COUNT 448 10^3/uL (134-434); RBC 4.54 M/mm3 (4.00-5.60); RDW 15.5 % (11.9-15.9); WHITE BLOOD COUNT 8.1 K/mm3 (4.0-10.0)
[2022-02-08 19:26] LABS: INR 1.14 (0.83-1.09); PROTHROMBIN TIME (PATIENT) 13.1 SEC (9.7-13.0)
[2022-02-08 19:29] LABS: ACTIVATED PTT 33.4 SECONDS (25.2-36.5)
[2022-02-08 19:39] LABS: CHLORIDE 106 mmol/L (98-107); SODIUM 144 mmol/L (136-145)
[2022-02-08 19:41] LABS: ANION GAP 5 MMOL/L (8-16); BLOOD UREA NITROGEN 12.4 mg/dL (7-18); CALCIUM 8.3 mg/dL (8.5-10.1); CO2 33 mmol/L (21-32)
[2022-02-08 19:42] LABS: ALBUMIN 2.5 g/dl (3.4-5.0)
[2022-02-08 19:44] LABS: CREATININE 0.9 mg/dL (0.55-1.3); SGPT/ALT 19 U/L (13-61)
[2022-02-08 19:45] LABS: SGOT/AST 16 U/L (15-37)
[2022-02-08 19:46] LABS: BILIRUBIN,TOTAL 0.2 mg/dL (0.2-1)
[2022-02-08 19:47] LABS: ALK PHOS 72 U/L (45-117)
[2022-02-08 19:51] LABS: GLUCOSE,RANDOM 47 mg/dL (74-106)
[2022-02-08] MEDS ORDERED: ONDANSETRON 4 MG/2 ML VIAL IVPUSH PRN (23:43)
[2022-02-08] MEDS ORDERED: ALBUTEROL SO4 2.5/IPRATROPIUM 0.5 INH SOL 3 ML VIAL.NEB. NEB PRN (23:53)
[2022-02-09] MEDS ORDERED: PIPERACILLIN/TAZOBACTAM 3.375 GM VIAL IVPB ONE ×3 (02:22→18:44)
[2022-02-09] MEDS ORDERED: DEXTROSE 5%-WATER - 50 ML IVPB ONE ×3 (02:23→18:45)
[2022-02-09] MEDS: PIPERACILLIN/TAZOB 3.375 GM 3.375 GM in DEXTROSE 5%-WATER - 50 ML IVPB SCH ×4 (02:47→18:51)
[2022-02-09] MEDS ORDERED: methaDONE HCL 40 MG DISPERSABLE TABLET ONE (06:22)
[2022-02-09] MEDS ORDERED: methaDONE HCL 10 MG TABLET ONE (06:23)
[2022-02-09] MEDS ORDERED: methaDONE 40 MG, methaDONE 10 MG PO ONE (06:30)
[2022-02-09 06:53] LABS: URINE BENZODIAZEPINES NEGATIVE (NEGATIVE)
[2022-02-09 06:54] LABS: COCAINE, UR NEGATIVE (NEGATIVE); OPIATES, URI NEGATIVE (NEGATIVE); PHENCYCLIDINE,URINE NEGATIVE (NEGATIVE)
[2022-02-09 06:59] LABS: METHADONE, UR POSITIVE (NEGATIVE); URINE AMPHETAMINES NEGATIVE (NEGATIVE); URINE BARBITURATES NEGATIVE (NEGATIVE)
[2022-02-09] MEDS ORDERED: methaDONE HCL 10 MG TABLET (FOR DETOX USE ONLY) PO ONE (07:00)
[2022-02-09] MEDS ORDERED: VANCOMYCIN 1 GM in D5W (PRE-DOCKED) 1,000 MG/250 ML IVPB SCH ×2 (10:00→14:15)
[2022-02-09] MEDS: FOLIC ACID 1 MG TABLET (FP) PO SCH (10:41)
[2022-02-09] MEDS: ENOXAPARIN NA (PORCINE) 40 MG/0.4 ML DISP.SYRIN SQ SCH (10:41)
[2022-02-09] MEDS: NICOTINE 14 MG/24 HOURS TOPICAL PATCH TD SCH (10:41)
[2022-02-09] MEDS: MULTIVITAMINS (DAILY MVI) TABLET (FP) PO SCH (10:41)
[2022-02-09 11:04] LABS: BASO % 0.7 % (0-2.0); EOS % 5.6 % (0-4.5); HEMATOCRIT 36.7 % (35.4-49); HEMOGLOBIN 11.7 GM/dL (11.7-16.9); LYMPH % 18.4 % (8-40); MCH 27.6 pg (25.7-33.7); MCHC 31.9 g/dl (32.0-35.9); MEAN CELL VOLUME 86.4 fl (80-96); MEAN PLT VOLUME 7.5 fl (7.5-11.1); MONO % 10.4 % (3.8-10.2); NEUT % 64.9 % (42.8-82.8); PLATELET COUNT 452 10^3/uL (134-434); RBC 4.25 M/mm3 (4.00-5.60); RDW 15.1 % (11.9-15.9); WHITE BLOOD COUNT 5.8 K/mm3 (4.0-10.0)
[2022-02-09 11:41] LABS: BLOOD UREA NITROGEN 13.4 mg/dL (7-18); MAGNESIUM 1.9 mg/dL (1.8-2.4)
[2022-02-09 11:43] LABS: CREATININE 0.7 mg/dL (0.55-1.3); PHOSPHOROUS 3.4 mg/dL (2.5-4.9)
[2022-02-09 11:45] LABS: BILIRUBIN,TOTAL 0.6 mg/dL (0.2-1)
[2022-02-09 11:59] LABS: ALBUMIN 1.9 g/dl (3.4-5.0)
[2022-02-09] MEDS ORDERED: VANCOMYCIN 1 GM/200 ML PREMIX BAG IVPB SCH (14:15)
[2022-02-09] MEDS: BUDESONIDE/FORMETEROL FUMARATE 160/4.5 mcg INHALER IH SCH ×2 (16:03→23:03)
[2022-02-09] MEDS: THIAMINE HCL 100 MG TABLET (FP) PO SCH (22:32)
[2022-02-10] MEDS ORDERED: PIPERACILLIN/TAZOBACTAM 3.375 GM VIAL IVPB ONE ×3 (00:16→17:12)
[2022-02-10] MEDS ORDERED: DEXTROSE 5%-WATER - 50 ML IVPB ONE ×3 (00:16→17:13)
[2022-02-10] MEDS: PIPERACILLIN/TAZOB 3.375 GM 3.375 GM in DEXTROSE 5%-WATER - 50 ML IVPB SCH ×3 (01:54→17:29)
[2022-02-10 07:34] LABS: BASO % 0.5 % (0-2.0); EOS % 4.6 % (0-4.5); HEMATOCRIT 37.7 % (35.4-49); HEMOGLOBIN 12.4 GM/dL (11.7-16.9); LYMPH % 21.3 % (8-40); MCH 28.1 pg (25.7-33.7); MCHC 32.9 g/dl (32.0-35.9); MEAN CELL VOLUME 85.7 fl (80-96); MEAN PLT VOLUME 7.4 fl (7.5-11.1); MONO % 11.6 % (3.8-10.2); PLATELET COUNT 392 10^3/uL (134-434); RDW 15.2 % (11.9-15.9); WHITE BLOOD COUNT 5.1 K/mm3 (4.0-10.0)
[2022-02-10 07:41] LABS: BLOOD UREA NITROGEN 13.5 mg/dL (7-18); CALCIUM 8.4 mg/dL (8.5-10.1)
[2022-02-10 07:42] LABS: ALBUMIN 2.2 g/dl (3.4-5.0)
[2022-02-10 07:45] LABS: CREATININE 0.9 mg/dL (0.55-1.3)
[2022-02-10 07:46] LABS: BILIRUBIN,TOTAL 0.3 mg/dL (0.2-1); TOT PROT 5.2 g/dl (6.4-8.2)
[2022-02-10] MEDS ORDERED: methaDONE HCL 10 MG TABLET PO ONE (08:45)
[2022-02-10] MEDS ORDERED: VANCOMYCIN 1 GM in D5W (PRE-DOCKED) 1,000 MG/250 ML IVPB SCH (10:00)
[2022-02-10] MEDS ORDERED: methaDONE HCL 40 MG DISPERSABLE TABLET ONE (10:50)
[2022-02-10] MEDS ORDERED: methaDONE HCL 10 MG TABLET ONE (10:51)
[2022-02-10] MEDS: FOLIC ACID 1 MG TABLET (FP) PO SCH (10:56)
[2022-02-10] MEDS: ACETAMINOPHEN 325 MG TABLET (FP) PO PRN (10:56)
[2022-02-10] MEDS: MULTIVITAMINS (DAILY MVI) TABLET (FP) PO SCH (10:56)
[2022-02-10] MEDS: BUDESONIDE/FORMETEROL FUMARATE 160/4.5 mcg INHALER IH SCH ×2 (10:57→22:13)
[2022-02-10] MEDS: methaDONE 40 MG, methaDONE 10 MG PO SCH (10:57)
[2022-02-10] MEDS: ENOXAPARIN NA (PORCINE) 40 MG/0.4 ML DISP.SYRIN SQ SCH (10:57)
[2022-02-10] MEDS: NICOTINE 14 MG/24 HOURS TOPICAL PATCH TD SCH (10:57)
[2022-02-10] MEDS: AMINO ACIDS/PROTEIN HYDROLYS 30 ML LIQUID.PKT PO SCH (16:30)
[2022-02-10] MEDS: THIAMINE HCL 100 MG TABLET (FP) PO SCH (22:13)
[2022-02-11] MEDS ORDERED: PIPERACILLIN/TAZOBACTAM 3.375 GM VIAL IVPB ONE ×3 (01:51→16:53)
[2022-02-11] MEDS ORDERED: DEXTROSE 5%-WATER - 50 ML IVPB ONE ×3 (01:52→16:53)
[2022-02-11] MEDS: PIPERACILLIN/TAZOB 3.375 GM 3.375 GM in DEXTROSE 5%-WATER - 50 ML IVPB SCH ×3 (01:57→17:01)
[2022-02-11] MEDS ORDERED: methaDONE HCL 10 MG TABLET ONE (05:38)
[2022-02-11] MEDS ORDERED: methaDONE HCL 40 MG DISPERSABLE TABLET ONE (05:38)
[2022-02-11] MEDS: methaDONE 40 MG, methaDONE 10 MG PO SCH (06:16)
[2022-02-11] MEDS: AMINO ACIDS/PROTEIN HYDROLYS 30 ML LIQUID.PKT PO SCH ×2 (08:22→17:01)
[2022-02-11 08:24] LABS: BASO % 0.7 % (0-2.0); EOS % 4.2 % (0-4.5); HEMATOCRIT 37.9 % (35.4-49); HEMOGLOBIN 12.4 GM/dL (11.7-16.9); LYMPH % 22.7 % (8-40); MCH 27.9 pg (25.7-33.7); MCHC 32.6 g/dl (32.0-35.9); MEAN CELL VOLUME 85.6 fl (80-96); MEAN PLT VOLUME 7.7 fl (7.5-11.1); MONO % 11.3 % (3.8-10.2); NEUT % 61.1 % (42.8-82.8); PLATELET COUNT 430 10^3/uL (134-434); RBC 4.43 M/mm3 (4.00-5.60); RDW 15.2 % (11.9-15.9); WHITE BLOOD COUNT 5.5 K/mm3 (4.0-10.0)
[2022-02-11 08:40] LABS: CALCIUM 8.6 mg/dL (8.5-10.1)
[2022-02-11 08:41] LABS: ALBUMIN 2.2 g/dl (3.4-5.0); BLOOD UREA NITROGEN 20.8 mg/dL (7-18); MAGNESIUM 2.2 mg/dL (1.8-2.4)
[2022-02-11 08:44] LABS: CREATININE 0.9 mg/dL (0.55-1.3)
[2022-02-11 08:46] LABS: BILIRUBIN,TOTAL 0.5 mg/dL (0.2-1); TOT PROT 5.7 g/dl (6.4-8.2)
[2022-02-11] MEDS: ENOXAPARIN NA (PORCINE) 40 MG/0.4 ML DISP.SYRIN SQ SCH (09:05)
[2022-02-11] MEDS: NICOTINE 14 MG/24 HOURS TOPICAL PATCH TD SCH (09:05)
[2022-02-11] MEDS: FOLIC ACID 1 MG TABLET (FP) PO SCH (09:05)
[2022-02-11] MEDS: MULTIVITAMINS (DAILY MVI) TABLET (FP) PO SCH (09:05)
[2022-02-11] MEDS: BUDESONIDE/FORMETEROL FUMARATE 160/4.5 mcg INHALER IH SCH ×3 (09:05→21:36)
[2022-02-11] MEDS: THIAMINE HCL 100 MG TABLET (FP) PO SCH (21:36)
[2022-02-12] MEDS ORDERED: DEXTROSE 5%-WATER - 50 ML IVPB ONE ×3 (01:06→17:25)
[2022-02-12] MEDS ORDERED: PIPERACILLIN/TAZOBACTAM 3.375 GM VIAL IVPB ONE ×3 (01:06→17:24)
[2022-02-12] MEDS: PIPERACILLIN/TAZOB 3.375 GM 3.375 GM in DEXTROSE 5%-WATER - 50 ML IVPB SCH ×3 (01:38→17:27)
[2022-02-12] MEDS ORDERED: methaDONE HCL 10 MG TABLET ONE (05:25)
[2022-02-12] MEDS ORDERED: methaDONE HCL 40 MG DISPERSABLE TABLET ONE (05:25)
[2022-02-12] MEDS: methaDONE 40 MG, methaDONE 10 MG PO SCH (06:58)
[2022-02-12] MEDS: AMINO ACIDS/PROTEIN HYDROLYS 30 ML LIQUID.PKT PO SCH ×2 (08:40→17:27)
[2022-02-12] MEDS: NICOTINE 14 MG/24 HOURS TOPICAL PATCH TD SCH (09:07)
[2022-02-12] MEDS: ENOXAPARIN NA (PORCINE) 40 MG/0.4 ML DISP.SYRIN SQ SCH (09:07)
[2022-02-12] MEDS: MULTIVITAMINS (DAILY MVI) TABLET (FP) PO SCH (09:07)
[2022-02-12] MEDS: FOLIC ACID 1 MG TABLET (FP) PO SCH (09:07)
[2022-02-12] MEDS: BUDESONIDE/FORMETEROL FUMARATE 160/4.5 mcg INHALER IH SCH ×4 (09:08→21:14)
[2022-02-12 10:24] LABS: BASO % 0.9 % (0-2.0); EOS % 3.8 % (0-4.5); HEMATOCRIT 37.7 % (35.4-49); HEMOGLOBIN 12.5 GM/dL (11.7-16.9); LYMPH % 18.8 % (8-40); MCH 28.2 pg (25.7-33.7); MCHC 33.1 g/dl (32.0-35.9); MEAN CELL VOLUME 85.1 fl (80-96); MEAN PLT VOLUME 7.8 fl (7.5-11.1); MONO % 9.8 % (3.8-10.2); NEUT % 66.7 % (42.8-82.8); PLATELET COUNT 380 10^3/uL (134-434); RBC 4.43 M/mm3 (4.00-5.60); RDW 15.1 % (11.9-15.9)
[2022-02-12 10:30] LABS: ALBUMIN 2.4 g/dl (3.4-5.0); BLOOD UREA NITROGEN 21.1 mg/dL (7-18); CALCIUM 8.1 mg/dL (8.5-10.1); MAGNESIUM 2.2 mg/dL (1.8-2.4)
[2022-02-12 10:33] LABS: CREATININE 0.9 mg/dL (0.55-1.3)
[2022-02-12 10:35] LABS: BILIRUBIN,TOTAL 0.3 mg/dL (0.2-1)
[2022-02-12] MEDS: AMMONIUM LACTATE 12% LOTION 225 GM BOTTLE TP PRN (11:46)
[2022-02-12] MEDS: THIAMINE HCL 100 MG TABLET (FP) PO SCH (21:06)
[2022-02-13] MEDS ORDERED: PIPERACILLIN/TAZOBACTAM 3.375 GM VIAL IVPB ONE ×3 (01:06→17:11)
[2022-02-13] MEDS ORDERED: DEXTROSE 5%-WATER - 50 ML IVPB ONE ×3 (01:07→17:11)
[2022-02-13] MEDS: PIPERACILLIN/TAZOB 3.375 GM 3.375 GM in DEXTROSE 5%-WATER - 50 ML IVPB SCH ×3 (01:44→17:14)
[2022-02-13] MEDS ORDERED: methaDONE HCL 40 MG DISPERSABLE TABLET ONE (06:10)
[2022-02-13] MEDS ORDERED: methaDONE HCL 10 MG TABLET ONE (06:10)
[2022-02-13] MEDS: methaDONE 40 MG, methaDONE 10 MG PO SCH (06:55)
[2022-02-13] MEDS: AMINO ACIDS/PROTEIN HYDROLYS 30 ML LIQUID.PKT PO SCH ×2 (08:22→16:37)
[2022-02-13] MEDS: FOLIC ACID 1 MG TABLET (FP) PO SCH (09:25)
[2022-02-13] MEDS: NICOTINE 14 MG/24 HOURS TOPICAL PATCH TD SCH (09:25)
[2022-02-13] MEDS: ENOXAPARIN NA (PORCINE) 40 MG/0.4 ML DISP.SYRIN SQ SCH (09:25)
[2022-02-13] MEDS: MULTIVITAMINS (DAILY MVI) TABLET (FP) PO SCH (09:25)
[2022-02-13 09:34] LABS: BASO % 0.8 % (0-2.0); EOS % 3.2 % (0-4.5); HEMATOCRIT 39.1 % (35.4-49); HEMOGLOBIN 12.6 GM/dL (11.7-16.9); LYMPH % 18.5 % (8-40); MCH 27.7 pg (25.7-33.7); MCHC 32.3 g/dl (32.0-35.9); MEAN CELL VOLUME 85.9 fl (80-96); MONO % 9.7 % (3.8-10.2); NEUT % 67.8 % (42.8-82.8); PLATELET COUNT 418 10^3/uL (134-434); RBC 4.56 M/mm3 (4.00-5.60); RDW 15.1 % (11.9-15.9); WHITE BLOOD COUNT 6.5 K/mm3 (4.0-10.0)
[2022-02-13] MEDS: AMMONIUM LACTATE 12% LOTION 225 GM BOTTLE TP PRN (09:41)
[2022-02-13] MEDS: BUDESONIDE/FORMETEROL FUMARATE 160/4.5 mcg INHALER IH SCH ×2 (09:45→21:06)
[2022-02-13 09:59] LABS: CALCIUM 8.6 mg/dL (8.5-10.1)
[2022-02-13 10:00] LABS: ALBUMIN 2.6 g/dl (3.4-5.0); MAGNESIUM 2.3 mg/dL (1.8-2.4)
[2022-02-13 10:03] LABS: BLOOD UREA NITROGEN 21.2 mg/dL (7-18); CREATININE 0.8 mg/dL (0.55-1.3)
[2022-02-13 10:04] LABS: TOT PROT 6.5 g/dl (6.4-8.2)
[2022-02-13 10:21] LABS: BILIRUBIN,TOTAL 0.6 mg/dL (0.2-1)
[2022-02-13] MEDS: ACETAMINOPHEN 325 MG TABLET (FP) PO PRN (17:20)
[2022-02-13] MEDS: THIAMINE HCL 100 MG TABLET (FP) PO SCH (21:06)
[2022-02-14] MEDS ORDERED: PIPERACILLIN/TAZOBACTAM 3.375 GM VIAL IVPB ONE ×3 (01:14→17:27)
[2022-02-14] MEDS ORDERED: DEXTROSE 5%-WATER - 50 ML IVPB ONE ×3 (01:14→17:27)
[2022-02-14] MEDS: PIPERACILLIN/TAZOB 3.375 GM 3.375 GM in DEXTROSE 5%-WATER - 50 ML IVPB SCH ×3 (01:48→18:02)
[2022-02-14] MEDS ORDERED: methaDONE HCL 40 MG DISPERSABLE TABLET ONE (05:07)
[2022-02-14] MEDS ORDERED: methaDONE HCL 10 MG TABLET ONE (05:07)
[2022-02-14] MEDS: methaDONE 40 MG, methaDONE 10 MG PO SCH (05:32)
[2022-02-14 09:35] LABS: EOS % 3.4 % (0-4.5); HEMATOCRIT 35.4 % (35.4-49); HEMOGLOBIN 11.4 GM/dL (11.7-16.9); LYMPH % 22.1 % (8-40); MCH 27.7 pg (25.7-33.7); MCHC 32.3 g/dl (32.0-35.9); MEAN CELL VOLUME 85.5 fl (80-96); MEAN PLT VOLUME 7.6 fl (7.5-11.1); MONO % 11.5 % (3.8-10.2); PLATELET COUNT 354 10^3/uL (134-434); RBC 4.14 M/mm3 (4.00-5.60); WHITE BLOOD COUNT 4.7 K/mm3 (4.0-10.0)
[2022-02-14] MEDS: ACETAMINOPHEN 325 MG TABLET (FP) PO PRN (09:48)
[2022-02-14] MEDS: MULTIVITAMINS (DAILY MVI) TABLET (FP) PO SCH (09:48)
[2022-02-14] MEDS: NICOTINE 14 MG/24 HOURS TOPICAL PATCH TD SCH (09:49)
[2022-02-14] MEDS: ENOXAPARIN NA (PORCINE) 40 MG/0.4 ML DISP.SYRIN SQ SCH (09:49)
[2022-02-14] MEDS: AMINO ACIDS/PROTEIN HYDROLYS 30 ML LIQUID.PKT PO SCH ×2 (09:49→18:02)
[2022-02-14] MEDS: FOLIC ACID 1 MG TABLET (FP) PO SCH (09:49)
[2022-02-14 09:56] LABS: BLOOD UREA NITROGEN 18.9 mg/dL (7-18)
[2022-02-14 09:57] LABS: ALBUMIN 2.3 g/dl (3.4-5.0); CALCIUM 8.3 mg/dL (8.5-10.1); MAGNESIUM 2.3 mg/dL (1.8-2.4)
[2022-02-14 10:00] LABS: CREATININE 0.7 mg/dL (0.55-1.3)
[2022-02-14 10:01] LABS: BILIRUBIN,TOTAL 0.4 mg/dL (0.2-1); TOT PROT 6.1 g/dl (6.4-8.2)
[2022-02-14] MEDS: BUDESONIDE/FORMETEROL FUMARATE 160/4.5 mcg INHALER IH SCH ×2 (11:21→22:21)
[2022-02-14 14:50] VITALS: BMI 15.6
[2022-02-14] MEDS: THIAMINE HCL 100 MG TABLET (FP) PO SCH (22:21)
[2022-02-15] MEDS ORDERED: PIPERACILLIN/TAZOBACTAM 3.375 GM VIAL IVPB ONE ×2 (00:49→08:59)
[2022-02-15] MEDS ORDERED: DEXTROSE 5%-WATER - 50 ML IVPB ONE ×2 (00:50→08:59)
[2022-02-15] MEDS: PIPERACILLIN/TAZOB 3.375 GM 3.375 GM in DEXTROSE 5%-WATER - 50 ML IVPB SCH ×2 (02:19→09:12)
[2022-02-15] MEDS ORDERED: methaDONE HCL 10 MG TABLET ONE (06:31)
[2022-02-15] MEDS ORDERED: methaDONE HCL 40 MG DISPERSABLE TABLET ONE (06:31)
[2022-02-15] MEDS: methaDONE 40 MG, methaDONE 10 MG PO SCH (06:33)
[2022-02-15] MEDS: AMINO ACIDS/PROTEIN HYDROLYS 30 ML LIQUID.PKT PO SCH ×2 (08:50→17:55)
[2022-02-15] MEDS: NICOTINE 14 MG/24 HOURS TOPICAL PATCH TD SCH (09:11)
[2022-02-15] MEDS: ENOXAPARIN NA (PORCINE) 40 MG/0.4 ML DISP.SYRIN SQ SCH (09:11)
[2022-02-15] MEDS: MULTIVITAMINS (DAILY MVI) TABLET (FP) PO SCH (09:11)
[2022-02-15] MEDS: FOLIC ACID 1 MG TABLET (FP) PO SCH (09:11)
[2022-02-15] MEDS: BUDESONIDE/FORMETEROL FUMARATE 160/4.5 mcg INHALER IH SCH ×2 (09:12→22:17)
[2022-02-15 09:17] LABS: EOS % 3.7 % (0-4.5); HEMATOCRIT 39.5 % (35.4-49); HEMOGLOBIN 12.4 GM/dL (11.7-16.9); LYMPH % 23.4 % (8-40); MCH 27.4 pg (25.7-33.7); MCHC 31.4 g/dl (32.0-35.9); MEAN CELL VOLUME 87.2 fl (80-96); MEAN PLT VOLUME 7.9 fl (7.5-11.1); MONO % 9.9 % (3.8-10.2); PLATELET COUNT 365 10^3/uL (134-434); RBC 4.53 M/mm3 (4.00-5.60); RDW 15.4 % (11.9-15.9); WHITE BLOOD COUNT 4.6 K/mm3 (4.0-10.0)
[2022-02-15 09:48] LABS: CALCIUM 8.6 mg/dL (8.5-10.1)
[2022-02-15 09:49] LABS: ALBUMIN 2.6 g/dl (3.4-5.0); BLOOD UREA NITROGEN 22.9 mg/dL (7-18); MAGNESIUM 2.2 mg/dL (1.8-2.4)
[2022-02-15 09:53] LABS: BILIRUBIN,TOTAL 0.2 mg/dL (0.2-1); CREATININE 0.7 mg/dL (0.55-1.3); TOT PROT 6.5 g/dl (6.4-8.2)
[2022-02-15 10:49] LABS: HIV INTERPRETATION NEGATIVE (NEGATIVE)
[2022-02-15 12:11] LABS: SARS-CoV-2 NAA Not Detected (Not Detected)
[2022-02-15] MEDS: AMOX TR/POT CLAV 875MG/125MG TABLETS (FP) PO SCH (17:57)
[2022-02-15] MEDS: THIAMINE HCL 100 MG TABLET (FP) PO SCH (22:17)
[2022-02-16] MEDS ORDERED: methaDONE HCL 40 MG DISPERSABLE TABLET ONE (05:59)
[2022-02-16] MEDS ORDERED: methaDONE HCL 10 MG TABLET ONE (05:59)
[2022-02-16] MEDS: methaDONE 40 MG, methaDONE 10 MG PO SCH (06:42)
[2022-02-16 08:42] LABS: BASO % 2.1 % (0-2.0); EOS % 4.7 % (0-4.5); HEMATOCRIT 37.2 % (35.4-49); LYMPH % 36.6 % (8-40); MCH 27.8 pg (25.7-33.7); MCHC 32.3 g/dl (32.0-35.9); MEAN CELL VOLUME 86.1 fl (80-96); MONO % 13.5 % (3.8-10.2); NEUT % 43.1 % (42.8-82.8); PLATELET COUNT 322 10^3/uL (134-434); RBC 4.32 M/mm3 (4.00-5.60); RDW 15.2 % (11.9-15.9); WHITE BLOOD COUNT 3.6 K/mm3 (4.0-10.0)
[2022-02-16 08:56] LABS: ALBUMIN 2.4 g/dl (3.4-5.0); CALCIUM 8.6 mg/dL (8.5-10.1)
[2022-02-16 08:58] LABS: BLOOD UREA NITROGEN 20.9 mg/dL (7-18); MAGNESIUM 2.1 mg/dL (1.8-2.4)
[2022-02-16 08:59] LABS: CREATININE 0.8 mg/dL (0.55-1.3)
[2022-02-16 09:02] LABS: BILIRUBIN,TOTAL 0.4 mg/dL (0.2-1); TOT PROT 6.3 g/dl (6.4-8.2)
[2022-02-16] MEDS: AMINO ACIDS/PROTEIN HYDROLYS 30 ML LIQUID.PKT PO SCH ×2 (10:36→17:56)
[2022-02-16] MEDS: MULTIVITAMINS (DAILY MVI) TABLET (FP) PO SCH (10:36)
[2022-02-16] MEDS: AMOX TR/POT CLAV 875MG/125MG TABLETS (FP) PO SCH ×2 (10:36→17:56)
[2022-02-16] MEDS: ENOXAPARIN NA (PORCINE) 40 MG/0.4 ML DISP.SYRIN SQ SCH (10:36)
[2022-02-16] MEDS: FOLIC ACID 1 MG TABLET (FP) PO SCH (10:36)
[2022-02-16] MEDS: BUDESONIDE/FORMETEROL FUMARATE 160/4.5 mcg INHALER IH SCH ×2 (10:37→21:56)
[2022-02-16] MEDS: NICOTINE 14 MG/24 HOURS TOPICAL PATCH TD SCH (10:42)
[2022-02-16] MEDS: THIAMINE HCL 100 MG TABLET (FP) PO SCH (21:55)
[2022-02-16] MEDS: SILVER SULFADIAZINE 1% TOP CREAM 50 GM JAR TP SCH (21:59)
[2022-02-17] MEDS ORDERED: methaDONE HCL 40 MG DISPERSABLE TABLET ONE (05:22)
[2022-02-17] MEDS ORDERED: methaDONE HCL 10 MG TABLET ONE (05:22)
[2022-02-17] MEDS: methaDONE 40 MG, methaDONE 10 MG PO SCH (06:08)
[2022-02-17] MEDS: AMINO ACIDS/PROTEIN HYDROLYS 30 ML LIQUID.PKT PO SCH ×2 (08:45→17:45)
[2022-02-17] MEDS: AMOX TR/POT CLAV 875MG/125MG TABLETS (FP) PO SCH ×2 (08:46→17:45)
[2022-02-17] MEDS: NICOTINE 14 MG/24 HOURS TOPICAL PATCH TD SCH (11:51)
[2022-02-17] MEDS: MULTIVITAMINS (DAILY MVI) TABLET (FP) PO SCH (11:52)
[2022-02-17] MEDS: ENOXAPARIN NA (PORCINE) 40 MG/0.4 ML DISP.SYRIN SQ SCH (11:52)
[2022-02-17] MEDS: FOLIC ACID 1 MG TABLET (FP) PO SCH (11:52)
[2022-02-17] MEDS: BUDESONIDE/FORMETEROL FUMARATE 160/4.5 mcg INHALER IH SCH ×2 (11:56→22:02)
[2022-02-17] MEDS: SILVER SULFADIAZINE 1% TOP CREAM 50 GM JAR TP SCH ×2 (12:01→22:03)
[2022-02-17] MEDS: THIAMINE HCL 100 MG TABLET (FP) PO SCH (22:03)
[2022-02-18] MEDS ORDERED: methaDONE HCL 40 MG DISPERSABLE TABLET ONE (06:05)
[2022-02-18] MEDS ORDERED: methaDONE HCL 10 MG TABLET ONE (06:06)
[2022-02-18] MEDS: methaDONE 40 MG, methaDONE 10 MG PO SCH (06:07)
[2022-02-18] MEDS: NICOTINE 14 MG/24 HOURS TOPICAL PATCH TD SCH (09:26)
[2022-02-18] MEDS: ENOXAPARIN NA (PORCINE) 40 MG/0.4 ML DISP.SYRIN SQ SCH (09:26)
[2022-02-18] MEDS: SILVER SULFADIAZINE 1% TOP CREAM 50 GM JAR TP SCH ×3 (09:27→21:02)
[2022-02-18] MEDS: FOLIC ACID 1 MG TABLET (FP) PO SCH (09:27)
[2022-02-18] MEDS: MULTIVITAMINS (DAILY MVI) TABLET (FP) PO SCH (09:27)
[2022-02-18] MEDS: AMOX TR/POT CLAV 875MG/125MG TABLETS (FP) PO SCH (09:58)
[2022-02-18] MEDS: AMINO ACIDS/PROTEIN HYDROLYS 30 ML LIQUID.PKT PO SCH ×2 (09:59→16:41)
[2022-02-18] MEDS: BUDESONIDE/FORMETEROL FUMARATE 160/4.5 mcg INHALER IH SCH ×3 (10:18→21:02)
[2022-02-18] MEDS: THIAMINE HCL 100 MG TABLET (FP) PO SCH (21:00)
[2022-02-19] MEDS ORDERED: methaDONE HCL 40 MG DISPERSABLE TABLET ONE (06:43)
[2022-02-19] MEDS ORDERED: methaDONE HCL 10 MG TABLET ONE (06:43)
[2022-02-19] MEDS: methaDONE 40 MG, methaDONE 10 MG PO SCH (06:46)
[2022-02-19] MEDS: AMINO ACIDS/PROTEIN HYDROLYS 30 ML LIQUID.PKT PO SCH ×2 (11:25→17:30)
[2022-02-19] MEDS: ENOXAPARIN NA (PORCINE) 40 MG/0.4 ML DISP.SYRIN SQ SCH (11:25)
[2022-02-19] MEDS: NICOTINE 14 MG/24 HOURS TOPICAL PATCH TD SCH (11:26)
[2022-02-19] MEDS: BUDESONIDE/FORMETEROL FUMARATE 160/4.5 mcg INHALER IH SCH ×2 (11:26→22:13)
[2022-02-19] MEDS: SILVER SULFADIAZINE 1% TOP CREAM 50 GM JAR TP SCH ×2 (11:26→22:13)
[2022-02-19] MEDS: FOLIC ACID 1 MG TABLET (FP) PO SCH (11:26)
[2022-02-19] MEDS: MULTIVITAMINS (DAILY MVI) TABLET (FP) PO SCH (11:26)
[2022-02-19] MEDS: THIAMINE HCL 100 MG TABLET (FP) PO SCH (22:12)
[2022-02-20] MEDS ORDERED: methaDONE HCL 40 MG DISPERSABLE TABLET ONE (04:52)
[2022-02-20] MEDS ORDERED: methaDONE HCL 10 MG TABLET ONE (04:53)
[2022-02-20] MEDS: methaDONE 40 MG, methaDONE 10 MG PO SCH (05:24)
[2022-02-20] MEDS: ENOXAPARIN NA (PORCINE) 40 MG/0.4 ML DISP.SYRIN SQ SCH (10:14)
[2022-02-20] MEDS: NICOTINE 14 MG/24 HOURS TOPICAL PATCH TD SCH (10:14)
[2022-02-20] MEDS: MULTIVITAMINS (DAILY MVI) TABLET (FP) PO SCH (10:14)
[2022-02-20] MEDS: AMINO ACIDS/PROTEIN HYDROLYS 30 ML LIQUID.PKT PO SCH ×2 (10:14→17:18)
[2022-02-20] MEDS: FOLIC ACID 1 MG TABLET (FP) PO SCH (10:14)
[2022-02-20] MEDS: BUDESONIDE/FORMETEROL FUMARATE 160/4.5 mcg INHALER IH SCH ×2 (10:15→21:05)
[2022-02-20] MEDS: SILVER SULFADIAZINE 1% TOP CREAM 50 GM JAR TP SCH ×2 (12:00→21:05)
[2022-02-20] MEDS: THIAMINE HCL 100 MG TABLET (FP) PO SCH (21:05)
[2022-02-21] MEDS ORDERED: methaDONE HCL 10 MG TABLET ONE (05:37)
[2022-02-21] MEDS ORDERED: methaDONE HCL 40 MG DISPERSABLE TABLET ONE (05:37)
[2022-02-21] MEDS: methaDONE 40 MG, methaDONE 10 MG PO SCH (05:54)
[2022-02-21] MEDS: MULTIVITAMINS (DAILY MVI) TABLET (FP) PO SCH (10:06)
[2022-02-21] MEDS: NICOTINE 14 MG/24 HOURS TOPICAL PATCH TD SCH (10:06)
[2022-02-21] MEDS: FOLIC ACID 1 MG TABLET (FP) PO SCH (10:06)
[2022-02-21] MEDS: AMINO ACIDS/PROTEIN HYDROLYS 30 ML LIQUID.PKT PO SCH (10:07)
[2022-02-21] MEDS: BUDESONIDE/FORMETEROL FUMARATE 160/4.5 mcg INHALER IH SCH (10:07)
[2022-02-21] MEDS: ENOXAPARIN NA (PORCINE) 40 MG/0.4 ML DISP.SYRIN SQ SCH (10:09)
[2022-02-21] MEDS: SILVER SULFADIAZINE 1% TOP CREAM 50 GM JAR TP SCH (10:09)
[2022-02-21 12:27] VITALS: PULSE 99
[2022-02-21 13:55] VITALS: BP 98/38; TEMP 98
== END 2022-02-21 14:00 | DRG 602 ==
LOC: JER 16:53 → JERBED 21:29 → J5S 02-09 01:29
PROVIDERS: ADMIT Hospitalist; ATTEND Nurse Practitioner Family
DX: L03.115 Cellulitis of right lower limb (principal); J18.9 Pneumonia, unspecified organism; E43 Unspecified severe protein-calorie malnutrition; J96.01 Acute respiratory failure with hypoxia; F11.20 Opioid dependence, uncomplicated; R64 Cachexia; Z68.1 Body mass index [BMI] 19.9 or less, adult; J98.11 Atelectasis; J44.0 Chronic obstructive pulmonary disease with (acute) lower respiratory infection; L03.116 Cellulitis of left lower limb; I73.9 Peripheral vascular disease, unspecified; D47.3 Essential (hemorrhagic) thrombocythemia; E16.2 Hypoglycemia, unspecified; B35.1 Tinea unguium; I87.8 Other specified disorders of veins; F17.210 Nicotine dependence, cigarettes, uncomplicated; Z59.00 Homelessness unspecified; Z86.16 Personal history of COVID-19
CPT/HCPCS: 36415; 71045-TC-FY; 80053; 80307; 82962; 83735; 84100; 84443; 84484; 85025; 85379; 85610; 85730; 86140; 87086; 87389; 87804; 87899; 93970-TC; 94761; 97116-GP; 97161-GP; 99285-25; C9803-CS; U0003; U0005